=== PATIENT | female | born 1960 | race Caucasian/White ===

== ENCOUNTER 2016-07-13 17:13 | Emergency (ER) | payer OTHER ==
[~2016-07-13] VITALS: Ht 165.1 cm; Wt 90.7 kg
[2016-07-13 17:30] VITALS: BP 151/94
[2016-07-13] MEDS ORDERED: KETOROLAC TROMETHAMINE INJ 30 MG/ML VIAL IM ONE (20:00)
[2016-07-13] MEDS ORDERED: DIAZEPAM 5 MG TABLET PO ONE (20:00)
[2016-07-13] MEDS ORDERED: HYDROCODONE/APAP 5/325MG 1 EACH TABLET PO ONE (20:00)
[2016-07-13] MEDS ORDERED: DIAZEPAM 5 MG TABLET ONE (20:21)
[2016-07-13] MEDS ORDERED: KETOROLAC TROMETHAMINE INJ 30 MG/ML VIAL ONE (20:22)
[2016-07-13] MEDS ORDERED: HYDROCODONE/APAP 5/325MG 1 EACH TABLET ONE (20:22)
== END 2016-07-13 20:35 | disposition home or self-care (01) ==
LOC: ER 17:18
DX: M54.32 Sciatica, left side (principal); E11.9 Type 2 diabetes mellitus without complications; I10 Essential (primary) hypertension
CPT/HCPCS: 96372; 99283; A4606; J1885; Z7610

== ENCOUNTER 2021-08-18 14:09 | Inpatient (IN) | payer OTHER ==
[~2021-08-18] VITALS: Ht 162.6 cm; Wt 92.1 kg
--- NOTE | 2021-08-18 14:13 | NUR ---
TO ER BED 3. BIB C/O SYNCOPAL EPISODE AND LOWER ABDOMINAL PAIN SINCE YESTERDAY. PT CHANGED INTO GOWN. CONNECTED TO MONITOR. AWAITING MD ELIZABETH
--- NOTE | 2021-08-18 14:50 | NUR ---
URINE SAMPLE COLLECTED AND SENT TO LAB
--- NOTE | 2021-08-18 14:55 | NUR ---
IV LINE ESTABLISHED. BLOOD COLLECTED AND SENT TO LAB
[2021-08-18] MEDS ORDERED: IV NS 0.9% 1,000 ML BAG IV ONE (15:00)
--- NOTE | 2021-08-18 15:02 | NUR ---
PT TAKEN FOR CT SCAN
[2021-08-18 15:03] LABS: BASOPHILS % (AUTO) 0.5 % (0.0-2.0); EOSINOPHILS % (AUTO) 0.1 % (0.0-6.0); HEMATOCRIT 35 % (33-45); LYMPHOCYTES # (AUTO) 0.2 K/uL (0.8-4.8); LYMPHOCYTES % (AUTO) 2.2 % (20.0-44.0); MEAN CORPUSCULAR HGB CONC 32 g/dl (31.0-36.0); MEAN CORPUSCULAR VOLUME 86 fL (82-100); MONOCYTES # (AUTO) 0.2 K/uL (0.1-1.30); MONOCYTES % (AUTO) 1.5 % (2.0-12.0); NEUTROPHILS % (AUTO) 95.7 % (43.0-81.0); PLATELET COUNT (AUTO) 189 K/uL (150-450); RED BLOOD CELL COUNT(AUTO) 4.06 MIL/uL (4.0-5.2); WHITE BLOOD COUNT (AUTO) 10.4 K/uL (4.3-11.0)
[2021-08-18 15:04] LABS: BILIRUBIN,URINE NEGATIVE (NEGATIVE); COLOR,URINE YELLOW (YELLOW); LEUKOCYTE ESTERASE ,URINE SMALL (NEGATIVE); NITRITE, URINE NEGATIVE (NEGATIVE); PROTEIN,URINE TRACE mg/dl (NEGATIVE); UGLUCOSE NEGATIVE (NEGATIVE); UROBILINOGEN,URINE 0.2 EU/dL (0.2)
--- NOTE | 2021-08-18 15:12 | NUR ---
PT BACK IN ROOM, EKG BEING OBTAINED
[2021-08-18 15:16] LABS: SQUAMOUS EPITHELIAL CELL,UR Moderate /HPF (None Seen); WBC,URINE 20-40 /HPF (0-3)
[2021-08-18 15:17] LABS: BACTERIA,URINE Rare /HPF (None Seen)
[2021-08-18 15:23] LABS: ALANINE AMINOTRANSFERASE 28 U/L (12-78); ALKALINE PHOSPHATASE 113 U/L (46-116); ASPARTATE AMINOTRANSFERASE 21 U/L (15-37); BILIRUBIN,DIRECT 0.2 mg/dL (0.0-0.2); BILIRUBIN,TOTAL 0.6 mg/dL (0.2-1.0); CALCIUM, SERUM 8.8 mg/dL (8.5-10.1); CARBON DIOXIDE 24 mmol/L (21-32); CHLORIDE 104 mmol/L (98-107); CREATININE 1.7 mg/dL (0.6-1.3); GLUCOSE 178 mg/dL (74-106); POTASSIUM 3.5 mmol/L (3.5-5.1); SODIUM SERUM 138 mmol/L (136-145); TOTAL PROTEIN, SERUM 6.9 g/dL (6.4-8.2); UREA NITROGEN, BLOOD 39 mg/dL (7-18)
--- NOTE | 2021-08-18 15:31 | NUR ---
COVID ANTIGEN SWAB COLLECTED AND SENT TO LAB
--- NOTE | 2021-08-18 15:32 | NUR ---
SPOKE WITH , NARGIS, FOR UPDATE
[2021-08-18 15:59] LABS: ALBUMIN 3.3 g/dL (3.4-5.0)
[2021-08-18] MEDS ORDERED: CEFTRIAXONE 1 G in IV D5W 50 ML IV ONE (18:00)
[2021-08-18] MEDS ORDERED: ASPIRIN 81 MG TAB.CHEW PO ONE (18:00)
[2021-08-18] MEDS ORDERED: IV NS 0.9% 1,000 ML IV ONE (18:00)
[2021-08-18] MEDS ORDERED: ZOLPIDEM TARTRATE 5 MG TABLET PO PRN (18:30)
[2021-08-18] MEDS ORDERED: Z GUARD REMEDY 4 OZ OINT TP PRN (18:30)
[2021-08-18] MEDS ORDERED: MAGNESIUM HYDROXIDE 30 ML UDC PO PRN (18:30)
[2021-08-18] MEDS ORDERED: IV NS 0.9% 1,000 ML IV PRN (18:30)
[2021-08-18] MEDS ORDERED: DEXTROSE 50%-WATER 50 ML DISP.SYRIN IV PRN (18:30)
[2021-08-18] MEDS ORDERED: ONDANSETRON HCL/PF 4 MG/2 ML VIAL IVP PRN (18:30)
[2021-08-18] MEDS ORDERED: MAG HYDROX/AL HYDROX/SIMETH 30 ML UDC PO PRN (18:30)
[2021-08-18] MEDS ORDERED: CEFTRIAXONE 1GM BAG (ER ONLY) 50 ML IV ONE (18:42)
[2021-08-18] MEDS ORDERED: ASPIRIN 81 MG TAB.CHEW ONE (18:43)
--- NOTE | 2021-08-18 21:10 | NUR ---
US TECH FOR ECHOCARDIOGRAM AT PT'S BEDSIDE
--- NOTE | 2021-08-18 21:28 | NUR ---
BED ASSIGNMENT: 315-1
--- NOTE | 2021-08-18 21:50 | NUR ---
REPORT GIVEN TO JASON
[2021-08-18] MEDS: BLOOD SUGAR DIAGNOSTIC 1 EACH STRIP VI SCH (22:05)
--- NOTE | 2021-08-18 22:15 | NUR ---
TRANSFERRED TO THIRD FLOOR UNDER ACLS
[2021-08-18 22:16] VITALS: BP 91/51
[2021-08-18] MEDS: ACETAMINOPHEN 325 MG TABLET PO PRN (22:50)
[2021-08-18] MEDS ORDERED: METF-440 PO (23:07)
[2021-08-18] MEDS ORDERED: HYDR12.55 PO (23:09)
[2021-08-18] MEDS ORDERED: LOSA25TA27 PO (23:09)
[2021-08-18] MEDS ORDERED: AMLO-213 PO (23:09)
[2021-08-18] MEDS ORDERED: ESCI20TA PO (23:09)
[2021-08-18] MEDS ORDERED: ATOR10TA PO (23:10)
[2021-08-18 23:17] VITALS: BP 91/51
--- NOTE | 2021-08-18 23:57 | NUR ---
DESIGN PRINTING MACHINE SET UP OPERATOR NOTES PT ARRIVED TO UNIT VIA GURNEY ABLE TO AMBULATE TO THE BED NOTED WITH STEADY GAIT. PT A/O X4 ON ROOM AIR TOLERATING WELL. PT REPORTED HAVING A HEADACHE TYLENOL GIVEN TOLERATED WELL. TX ON NS @ 75ML/HR RUNNING WELL. PT HAS IV ACCESS ON THE RAC 20 G IN TACT PATENT. PT REFUSED TO CHANGE IN TO HOSPITAL GOWN REFUSED SKIN ASSESSMENT PER PT SHE HAS NO WOUNDS ON HER BODY. PT ON TELE MONITOR. PT ORIENTED TO ROOM AND UNIT. PT GIVEN A SANDWICH PER PT SHE HAS NOT EATEN SINCE YESTERDAY.CALL LIGHT WITHIN REACH TABLE WITHIN REACH. WILL CONTINUE TO MONITOR. Addendum: 08/19/21 at 0645 by LUIS PERKINS RN PER PT SHE HAS RECENTLY GONE OVER A WEIGHT LOSS OF 40 POUNDS SHE EXERCISES VIGOROUSLY FOR 3 HRS DAILY AND TRIES TO MAINTAIN A HEALTHY LIFE STYLE.
[2021-08-19] VITALS (7 sets, daily range): BP systolic 89–119; BP diastolic 50–68
--- NOTE | 2021-08-19 01:17 | NUR ---
telephone directory deliverer notes pt noted with sbp 89/54 reported to international accountant md received new orders for 1l bolus and midrodrine 10 mg x1 orders noted and carried out will continue to monitor.
[2021-08-19] MEDS ORDERED: MIDODRINE HCL (5MG) 5 MG TABLET PO SCH (01:30)
[2021-08-19] MEDS ORDERED: IV NS 0.9% 1,000 ML IV ONE ×2 (01:30)
[2021-08-19] MEDS: ACETAMINOPHEN 325 MG TABLET PO PRN ×3 (05:14→17:10)
[2021-08-19 06:24] LABS: BASOPHILS % (AUTO) 0.2 % (0.0-2.0); EOSINOPHILS % (AUTO) 0.1 % (0.0-6.0); HEMATOCRIT 27 % (33-45); HEMOGLOBIN 8.8 g/dL (11.5-14.8); LYMPHOCYTES # (AUTO) 0.4 K/uL (0.8-4.8); LYMPHOCYTES % (AUTO) 2.5 % (20.0-44.0); MEAN CORPUSCULAR HGB CONC 33 g/dl (31.0-36.0); MEAN CORPUSCULAR VOLUME 86 fL (82-100); MONOCYTES # (AUTO) 0.6 K/uL (0.1-1.30); MONOCYTES % (AUTO) 3.8 % (2.0-12.0); NEUTROPHILS # (AUTO) 14.9 K/uL (1.8-8.9); NEUTROPHILS % (AUTO) 93.4 % (43.0-81.0); PLATELET COUNT (AUTO) 163 K/uL (150-450); RED BLOOD CELL COUNT(AUTO) 3.16 MIL/uL (4.0-5.2); WHITE BLOOD COUNT (AUTO) 15.9 K/uL (4.3-11.0)
--- NOTE | 2021-08-19 06:41 | NUR ---
MAIL SORTER AND DELIVERY NOTES PT A/O X4 ON ROOM AIR TOLERATING WELL. PT REPORTED HAVING A HEADACHE TYLENOL GIVEN TOLERATED WELL. ON NS @ 75ML/HR RUNNING WELL. PT HAS IV ACCESS ON THE RAC 20 G IN TACT PATENT. PT REFUSED TO CHANGE IN TO HOSPITAL GOWN REFUSED SKIN ASSESSMENT PER PT SHE HAS NO WOUNDS ON HER BODY. PT ON TELE MONITOR. ALL DUE MEDS. CALL LIGHT WITHIN REACH TABLE WITHIN REACH. WILL ENDORSE CARE TO DAY SHIFT NURSE.
--- NOTE | 2021-08-19 07:30 | NUR ---
COLLAR TURNER OPERATOR NOTES PT IN BED, AWAKE, ALERT AND ORIENTED, NO COMPLAINT OF PAIN AT THIS TIME, RESPIRATIONS NORMAL, CALL LIGHT WITHIN REACH, IV FLUIDS INFUSING WELL, PT ABLE TO AMBULATE TO THE BATHROOM WITH STEADY GAIT, NEEDS ATTENDED, PLAN OF CARE DISCUSSED WITH PT, VERBALIZED UNDERSTANDING.
[2021-08-19] MEDS: BLOOD SUGAR DIAGNOSTIC 1 EACH STRIP VI SCH ×4 (07:31→21:21)
[2021-08-19] MEDS: INSULIN REGULAR, HUMAN 100 UNIT/ML 3 ML VIAL SQ PRN (07:32)
[2021-08-19 07:58] LABS: CALCIUM, SERUM 7.7 mg/dL (8.5-10.1); CREATININE 1.8 mg/dL (0.6-1.3); MAGNESIUM 1.4 mg/dL (1.8-2.4); PHOSPHORUS 2.8 mg/dL (2.5-4.9); POTASSIUM 3.4 mmol/L (3.5-5.1)
[2021-08-19] MEDS ORDERED: CEFTRIAXONE 1 G in IV D5W 50 ML IV SCH (08:00)
[2021-08-19] MEDS: POTASSIUM CHLORIDE 20 MEQ TAB.PRT.SR PO SCH ×3 (08:39→11:01)
[2021-08-19] MEDS: IV NS 0.9% 1,000 ML IV PRN ×2 (08:40→21:21)
[2021-08-19] MEDS: Magnesium 1GM/D5W 100ML PREMIX 100 ML IV SCH ×2 (08:40→09:50)
[2021-08-19] MEDS: ATORVASTATIN 10 MG TABLET PO SCH (17:36)
[2021-08-19] MEDS: CEFTRIAXONE 2 G in IV D5W 100 ML IV SCH (17:37)
--- NOTE | 2021-08-19 18:15 | NUR ---
APPLIANCE ADJUSTER NOTES PT IN BED, AWAKE, ALERT AND ORIENTED, NO COMPLAINT OF PAIN AT THIS TIME, RESPIRATIONS NORMAL, CALL LIGHT WITHIN REACH, ABLE TO AMBULATE TO THE BATHROOM NEEDED, PM MEDS GIVEN ORDERED, NEEDS ATTENDED.
[2021-08-19 19:03] LABS: THYROID STIMULATING HORMONE 1.592 uIU/mL (0.358-3.74)
--- NOTE | 2021-08-19 19:30 | NUR ---
FLUORESCENT LAMP REPLACER OPENING NOTE PATIENT AWAKE IN BED, ALERT/ORIENTED X 4, PT ABLE TO MAKE NEEDS KNOWN. PT ON EXTERNAL JAIL GUARD READING SINUS RHYTHM WITH BBB, HR: 92. PT STABLE ON RA, NO S/S OF DISTRESS OR SOB NOTED, BREATHING EVEN AND UNLABORED. IV ACCESS ON RIGHT AC #20G INTACT AND RUNNING NS @ 200 ML/HR X 2 BAGS OF 1000 ML, FIRST BAG STILL RUNNING PATIENT REQUESTING TO BE DISCONNECTED MULTIPLE TIMES TO USE THE BATHROOM ETC PER DAY SHIFT NURSE. SAFETY MEASURES IN PLACE: CALL LIGHT WITHIN REACH, SIDE RAILS UP X 2, BED LOCKED IN LOW POSITION, BED ALARM ON. WILL CONTINUE TO MONITOR PATIENT
--- NOTE | 2021-08-19 22:40 | NUR ---
ELECTRICAL ASSEMBLY TECHNICIAN NOTE PATIENT REPORTING 7/10 BACK PAIN. CONTACTED NEMATOLOGIST MD WITH NEW ORDER FOR NORCO 10/325 PO PRN Q6H, ORDER VERIFIED
[2021-08-19] MEDS ORDERED: HYDROCODONE/APAP 10/325MG TABLET PO PRN (22:45)
--- NOTE | 2021-08-19 23:00 | NUR ---
TOOL MARKER NOTE PATIENT STATED SHE DOES NOT WANT TO TAKE NORCO BECAUSE IT IS TOO STRONG AND AFRAID OF ADDICTION, SAID SHE TAKES MOTRIN AT HOME. CONTACTED PIPEFITTER MD WITH NEW ORDER FOR MOTRIN 600 MG PO PRN Q6H. ORDER VERIFIED AND CARRIED OUT
[2021-08-19] MEDS: IBUPROFEN 600 MG TABLET PO PRN (23:21)
[2021-08-20] VITALS: BP_SYST 110; BP_SYST 152; BP_DIAS 75; BP_DIAS 82
[2021-08-20 04:00] VITALS: BP 94/51
[2021-08-20] MEDS: IBUPROFEN 600 MG TABLET PO PRN ×4 (05:22→23:49)
[2021-08-20] MEDS: BLOOD SUGAR DIAGNOSTIC 1 EACH STRIP VI SCH ×4 (06:47→21:37)
--- NOTE | 2021-08-20 06:50 | NUR ---
TELEGRAPH SERVICE RATER CLOSING NOTE PATIENT SLEEPING IN BED, ALERT/ORIENTED X 4, PT ABLE TO MAKE NEEDS KNOWN. PT ON EXTERNAL TRANSPORTATION LOGISTICS INTER[employer]IP READING SINUS RHYTHM WITH BBB, WITH OCCASIONAL JUNCTIONAL RHYTHM, HR: 98. PT STABLE ON RA, NO S/S OF DISTRESS OR SOB NOTED, BREATHING EVEN AND UNLABORED. IV ACCESS ON RIGHT AC #20G INTACT AND SALINE LOCKED, 2 BAGS OF 1000 ML OF NS ADMINISTERED. NO SIGNIFICANT CHANGES THROUGHOUT SHIFT. MEDICATIONS GIVEN ORDERED, PT NEEDS MET THROUGHOUT SHIFT. SAFETY MEASURES IN PLACE: CALL LIGHT WITHIN REACH, SIDE RAILS UP X 2, BED LOCKED IN LOW POSITION, BED ALARM ON. WILL ENDORSE TO DAY SHIFT NURSE FOR CONTINUITY OF CARE
[2021-08-20 07:19] LABS: BASOPHILS % (AUTO) 0.2 % (0.0-2.0); EOSINOPHILS % (AUTO) 0.8 % (0.0-6.0); HEMATOCRIT 28 % (33-45); HEMOGLOBIN 9.2 g/dL (11.5-14.8); LYMPHOCYTES # (AUTO) 0.9 K/uL (0.8-4.8); LYMPHOCYTES % (AUTO) 6.7 % (20.0-44.0); MEAN CORPUSCULAR HGB CONC 33 g/dl (31.0-36.0); MEAN CORPUSCULAR VOLUME 83 fL (82-100); MONOCYTES # (AUTO) 0.7 K/uL (0.1-1.30); MONOCYTES % (AUTO) 5.4 % (2.0-12.0); NEUTROPHILS # (AUTO) 11.4 K/uL (1.8-8.9); NEUTROPHILS % (AUTO) 86.9 % (43.0-81.0); PLATELET COUNT (AUTO) 166 K/uL (150-450); RED BLOOD CELL COUNT(AUTO) 3.35 MIL/uL (4.0-5.2); WHITE BLOOD COUNT (AUTO) 13.1 K/uL (4.3-11.0)
[2021-08-20 07:43] LABS: ALANINE AMINOTRANSFERASE 22 U/L (12-78); ALBUMIN 2.2 g/dL (3.4-5.0); ALKALINE PHOSPHATASE 96 U/L (46-116); ASPARTATE AMINOTRANSFERASE 20 U/L (15-37); BILIRUBIN,TOTAL 0.2 mg/dL (0.2-1.0); CALCIUM, SERUM 7.9 mg/dL (8.5-10.1); CARBON DIOXIDE 17 mmol/L (21-32); CHLORIDE 110 mmol/L (98-107); CREATININE 1.3 mg/dL (0.6-1.3); GLUCOSE 126 mg/dL (74-106); MAGNESIUM 2.2 mg/dL (1.8-2.4); PHOSPHORUS 1.9 mg/dL (2.5-4.9); POTASSIUM 3.3 mmol/L (3.5-5.1); SODIUM SERUM 138 mmol/L (136-145); TOTAL PROTEIN, SERUM 5.8 g/dL (6.4-8.2); UREA NITROGEN, BLOOD 26 mg/dL (7-18)
--- NOTE | 2021-08-20 07:49 | NUR ---
RN OPENING NOTES PATIENT AWAKE IN BED RESTING, A/O X 4. NO S/S OF PAIN NOTED AT THIS TIME. PATIENT ON ROOM AIR NO DISTRESS OR SHORTNESS OF BREATH NOTED. IV ACCESS RAC #20G, PATENT AND FLUSHING WELL. PATIENT ON EXTERNAL HAIR WORKER READING SINUS RHYTHM WITH BBB , WITH OCCASIONAL JUNCTIONAL RHYTHM. FALL AND SAFETY MEASURES IN PLACE, BED ALARM ON, BED IN LOW AND LOCK POSITION, CALL LIGHT AND TABLE WITHIN EASY REACH, SIDE RAILS UP X2. WILL CONTINUE TO MONITOR.
[2021-08-20] MEDS ORDERED: NEUTRA PHOS 1 POWD.PACKET PO ONE (08:00)
[2021-08-20] MEDS ORDERED: POTASSIUM CHLORIDE 20 MEQ TAB.PRT.SR PO ONE (08:00)
[2021-08-20 08:15] VITALS: BP 125/90
[2021-08-20] MEDS: ESCITALOPRAM OXALATE (10 MG) 10 MG TABLET PO SCH (08:31)
[2021-08-20] MEDS ORDERED: NEUTRA PHOS 1 POWD.PACKET PO SCH ×3 (09:00→18:00)
[2021-08-20] MEDS: POTASSIUM CHLORIDE 20 MEQ TAB.PRT.SR PO SCH ×3 (10:14→13:39)
[2021-08-20 12:15] VITALS: BP 152/75
[2021-08-20] MEDS ORDERED: SOD FERRIC GLUC 125 MG in IV NS 0.9% 100 ML IV SCH (14:00)
[2021-08-20 16:09] VITALS: BP 145/86
[2021-08-20] MEDS: ATORVASTATIN 10 MG TABLET PO SCH (17:49)
[2021-08-20] MEDS: CEFTRIAXONE 2 G in IV D5W 100 ML IV SCH (17:53)
[2021-08-20] MEDS: *INSULIN REGULAR(HUMULIN R)HUM 100 UNIT/ML VIAL SQ PRN ×3 (17:57→21:45)
[2021-08-20] MEDS: IV NS 0.9% 1,000 ML IV PRN ×2 (18:18→19:38)
--- NOTE | 2021-08-20 19:00 | NUR ---
RN CLOSING NOTES PATIENT AWAKE IN BED RESTING, A/O X 4. NO S/S OF PAIN NOTED AT THIS TIME. PATIENT ON ROOM AIR NO DISTRESS OR SHORTNESS OF BREATH NOTED. IV ACCESS RAC #20G, PATENT AND FLUSHING WELL. PATIENT ON EXTERNAL RN DERMATOLOGY READING SINUS RHYTHM WITH BBB , WITH OCCASIONAL JUNCTIONAL RHYTHM. FALL AND SAFETY MEASURES IN PLACE, BED ALARM ON, BED IN LOW AND LOCK POSITION, CALL LIGHT AND TABLE WITHIN EASY REACH, SIDE RAILS UP X2. WILL ENDORSE TO COMPONENT LAB TECH.
--- NOTE | 2021-08-20 19:45 | NUR ---
PATIENT REGISTRATION SUPERVISOR NOTES RECEIVED ON BED A/O X4,BREATHING REGULAR,NOT IN ANY FORM OF DISTRESS,100% ON ROOM AIR,PRESENT IVF NS AT 200ML/HR RATE X 2LITERS.DENIES CHEST PAIN,JUST A LOWER BACK PAIN AND SHE WAS MEDICATED AROUND 1800.CALL LIGHT IN REACH,NEEDS ANTICIPATED.
[2021-08-20 20:00] VITALS: BP 113/62
--- NOTE | 2021-08-20 21:30 | NUR ---
INHALATION THERAPY AIDE NOTES ACCU-CHECK BLOOD SUGAR CHECK 140,HUMULIN R 2 UNITS COVERAGE REFUSED BY PATIENT .CLAIMED SHE NEVER HAD INSULIN INJECTION FOR HIGH BLOOD SUGAR
--- NOTE | 2021-08-20 21:36 | NUR ---
KITCHEN AND BATH DESIGNER NOTES C/O INSOMNIA,AMBIEN 5MG PO GIVEN ORDERED AND PER PATIENT REQUEST.
--- NOTE | 2021-08-20 23:49 | NUR ---
BRUSH CLEANER NOTES C/O LOWER BACK PAIN,3/10 ON PAIN SCALE,MOTRIN 600MG PO GIVEN ORDERED AND PER PATIENT REQUEST.
[2021-08-21] VITALS: BP 152/82
[2021-08-21] MEDS: IV NS 0.9% 1,000 ML IV PRN (03:00)
--- NOTE | 2021-08-21 03:15 | NUR ---
PIANO REFINISHER NOTES REFUSED SECOND BAG OF NS SUPPOSED TO HUNG YESTERDAY.
[2021-08-21 04:00] VITALS: BP 126/68
--- NOTE | 2021-08-21 05:30 | NUR ---
FIBERGLASS FABRICATOR NOTES ACCU-CHECK BLOOD SUGAR CHECK 119,NO INSULIN COVERAGE.
[2021-08-21] MEDS: BLOOD SUGAR DIAGNOSTIC 1 EACH STRIP VI SCH ×2 (06:21→11:58)
[2021-08-21 06:45] LABS: BASOPHILS % (AUTO) 0.4 % (0.0-2.0); EOSINOPHILS % (AUTO) 1.1 % (0.0-6.0); HEMATOCRIT 27 % (33-45); HEMOGLOBIN 9.3 g/dL (11.5-14.8); LYMPHOCYTES # (AUTO) 1.3 K/uL (0.8-4.8); LYMPHOCYTES % (AUTO) 14.2 % (20.0-44.0); MEAN CORPUSCULAR HGB CONC 34 g/dl (31.0-36.0); MEAN CORPUSCULAR VOLUME 83 fL (82-100); MONOCYTES # (AUTO) 0.5 K/uL (0.1-1.30); MONOCYTES % (AUTO) 5.2 % (2.0-12.0); NEUTROPHILS # (AUTO) 7.4 K/uL (1.8-8.9); NEUTROPHILS % (AUTO) 79.1 % (43.0-81.0); PLATELET COUNT (AUTO) 187 K/uL (150-450); RED BLOOD CELL COUNT(AUTO) 3.29 MIL/uL (4.0-5.2); WHITE BLOOD COUNT (AUTO) 9.4 K/uL (4.3-11.0)
--- NOTE | 2021-08-21 06:48 | NUR ---
RECYCLING MANAGER NOTES FAIRLY RESTED AT NIGHT,MOTRIN EFFECTIVE FOR PAIN MANAGEMENT,ALL DUE MEDS ADMINISTERED,CALL LIGHT IN REACH,NEEDS ATTENDED.
[2021-08-21 07:27] LABS: ALBUMIN 2.3 g/dL (3.4-5.0); BILIRUBIN,TOTAL 0.2 mg/dL (0.2-1.0); CALCIUM, SERUM 8.1 mg/dL (8.5-10.1); CREATININE 1.2 mg/dL (0.6-1.3); MAGNESIUM 2.4 mg/dL (1.8-2.4); POTASSIUM 4.3 mmol/L (3.5-5.1); TOTAL PROTEIN, SERUM 6.3 g/dL (6.4-8.2)
--- NOTE | 2021-08-21 07:43 | NUR ---
COMMODITY MANAGER OPENING NOTES RECEIVED PATIENT IN BED A/O X4, BREATHING REGULARLY AND IN NO DISTRESS AT THIS TIME. R AC 20 G SL FLUSHES WELL. TELE MONITOR IN PLACE READING NSR @ 85 BPM. SAFETY MEASURES IN PLACE: BED IN LOWEST LOCKED POSITION, SIDE RAILS UP X 2, CALL LIGHT IN REACH, WILL CONTINUE TO MONITOR.
[2021-08-21 08:00] VITALS: BP 120/61
[2021-08-21] MEDS: ESCITALOPRAM OXALATE (10 MG) 10 MG TABLET PO SCH (08:29)
[2021-08-21] MEDS: IBUPROFEN 600 MG TABLET PO PRN (08:52)
--- NOTE | 2021-08-21 09:05 | NUR ---
MS RN NOTES PATIENT COMPLAINT OF 8/10 LOWER BACK PAIN AND REQUESTING ANALGESIC MED AT THIS TIME. PRESCRIBED 5 MG MOTRIN PO GIVEN PRESCRIBED. WILL CONTINUE TO MONITOR FOR S/S OF PAIN.
--- NOTE | 2021-08-21 10:51 | NUR ---
RN NOTES STOOL SPECIMEN COLLECTED AND CALLED LAB TO PICK-UP SPECIMEN.
[2021-08-21] MEDS ORDERED: K PHOS NEUTRAL 250 MG TABLET PO ONE (11:30)
[2021-08-21 12:04] VITALS: BP 138/74
[2021-08-21] MEDS: INSULIN REGULAR, HUMAN 100 UNIT/ML 3 ML VIAL SQ PRN (12:07)
--- NOTE | 2021-08-21 12:08 | NUR ---
RN NOTES PATIENT WITH ACCUCHECK 148 MG/DL, PATIENT REFUSED INSULIN COVERAGE AT THIS TIME.WILL CONTINUE TO MONITOR.
[2021-08-21 13:53] LABS: OCCULT BLOOD STOOL NEGATIVE (NEGATIVE)
[2021-08-21] MEDS ORDERED: SOD FERRIC GLUC 125 MG in IV NS 0.9% 100 ML IV SCH (14:00)
--- NOTE | 2021-08-21 14:06 | NUR ---
WILDLIFE BIOLOGIST NOTES RECEIVED CALL FROM MD MARGRET MARIN WHO INSTRUCTED TO D/C PRESCRIBED SODIUM FERRIC GLUCONATE AT THIS TIME AND SWITCH PATIENT TO ORAL IRON MEDICATION. SODIUM FERRIC GLUCONATE 0.9 % IV MEDICATION DISCONTINUED ORDERED.
[2021-08-21] MEDS ORDERED: FERR325T23 PO (14:17)
--- NOTE | 2021-08-21 16:03 | NUR ---
RN DISCHARGED NOTES PATIENT DISCHARGED HOME IN STABLE CONDITION. A/O X4. ABLE TO MAKE NEEDS KNOWN. STOOL OB COLLECTED TODAY WITH NEGATIVE RESULTS NOTED, DNP TOMAS MADE AWARE. V/S TAKEN AND STABLE. SKIN IS INTACT WITH NO SKIN ISSUES NOTED. ALL BELONGINGS ACCOUNTED FOR AND PT SIGNED BELONGINGS LIST. IV ACCESS ON RAC REMOVED WITH NO ACTIVE BLEEDING NOTED, APPLIED DRY PRESSURE DRESSING AT SITE. NAME ARMBAND REMOVED. HEALTH TEACHINGS/DISCHARGED INSTRUCTIONS GIVEN TO PT AND VERBALIZED UNDERSTANDING. PATIENT AWARE OF DISCHARGE AND FOLLOW-UP INSTRUCTIONS. PT LEFT UNIT VIA WHEELCHAIR AT 1515 ACCOMPANIED BY THEO ESCALANTE AND PT'S NARGIS. AND CHARGE NURSE AWARE OF DISCHARGE.
== END 2021-08-21 15:15 | disposition home or self-care (01) | DRG 463 ==
LOC: ER 14:17 → TRANSITION 19:59 → TELE 21:45
PROVIDERS: ADMIT Nurse Practitioner Acute Care; ATTEND Hospitalist
DX: N39.0 Urinary tract infection, site not specified (principal); N17.0 Acute kidney failure with tubular necrosis; E44.0 Moderate protein-calorie malnutrition; E87.2 Acidosis; E83.39 Other disorders of phosphorus metabolism; I95.9 Hypotension, unspecified; E11.9 Type 2 diabetes mellitus without complications; D50.9 Iron deficiency anemia, unspecified; E88.09 Other disorders of plasma-protein metabolism, not elsewhere classified; R39.198 Other difficulties with micturition; E66.01 Morbid (severe) obesity due to excess calories; E78.5 Hyperlipidemia, unspecified; E86.9 Volume depletion, unspecified; I10 Essential (primary) hypertension; I44.7 Left bundle-branch block, unspecified; Z68.34 Body mass index [BMI] 34.0-34.9, adult; G47.33 Obstructive sleep apnea (adult) (pediatric); E83.42 Hypomagnesemia; E87.6 Hypokalemia; D64.9 Anemia, unspecified; W18.30XA Fall on same level, unspecified, initial encounter; Y93.9 Activity, unspecified; Y92.009 Unspecified place in unspecified non-institutional (private) residence as the place of occurrence of the external cause; I08.0 Rheumatic disorders of both mitral and aortic valves
CPT/HCPCS: 36415; 70450-TC; 71045-TC; 76770-TC; 80048-TC; 80053-TC; 80061-TC; 80076-TC; 81001; 82272-TC; 82550-TC; 82728-TC; 82962-TC; 83540-TC; 83735-TC; 84100-TC; 84439-TC; 84443-TC; 84484-TC; 85025-TC; 87081-TC; 87086-TC; 93307-TC; C9803; G0378; J0696; J1815; J2916; J3475; J7030; J7060